=== PATIENT | male | born 1955 | race Caucasian/White ===

== ENCOUNTER 2018-06-21 12:19 | Emergency (ER) | payer BC ==
[~2018-06-21] VITALS: Ht 180.3 cm; Wt 104.3 kg
--- NOTE | 2018-06-21 15:09 | RAD ---
Examination: CT head and maxillofacial bones without contrast HISTORY: History of fall, loss of consciousness, head injury, facial injury COMPARISON: None available Technique: Axial CT images of the head was performed without contrast. Axial CT images of the maxillary facial bones were performed without contrast. Coronal and sagittal reformats are performed Exposure: One or more of the following individualized dose reduction techniques were utilized for this examination: 1. Automated exposure control 2. Adjustment of the mA and/or kV according to patient size 3. Use of iterative reconstruction technique FINDINGS: Mild bilateral periventricular white matter hypodensities likely chronic small vessel ischemic disease. No evidence of acute intracranial hemorrhage. No extra-axial fluid collections. No mass effect or midline shift. Ventricular size is appropriate. Basal cisterns are patent. No fractures identified.Miller-white differentiation is preserved.Globes and orbits are within normal limits. No acute fracture dislocation or other acute bony abnormality is identified. Mild mucosal thickening identified in the bilateral maxillary sinuses. Moderate mucosal thickening identified in the bilateral ethmoidal sinuses. The globes and orbits are intact in CT appearance. There is no retrobulbar hematoma. IMPRESSION: 1. No acute intracranial findings. 2. No acute fracture of the facial bones. Electronically signed by: Dio Victoria MD (06/21/2018 3:06 PM) [place] [id number]
--- NOTE | 2018-06-21 15:22 | PHYS DOC ---
Past Medical History Past Medical History: Hypertension Past Surgical History: Other Additional Past Surgical Histo: RIGHT SHOULDER Alcohol Use: Occasionally Drug Use: None Adult General Chief Complaint Chief Complaint: MECHANICAL FALL HPI HPI Patient is a 62-year-old male who presents with complaint of headache and a little bit of blurred vision after fall 2 days ago. Patient states that he had slipped on some ice, falling hitting his right forehead. Patient states that he had lost consciousness, was found on the ground and helped inside by a neighbor. Patient states that he decided not to come in at that time because he did not have to go to work. He does indicate that he had developed nausea and vomiting yesterday but has had none today. He rates his headache as being moderate. He states that he has been getting a little bit dizzy and has a little bit of blurred vision out of his right eye though he does indicate that he has to wear nonprescription corrective lenses. He denies any injury to the eye. Review of Systems Review of Systems Constitutional: Denies fever or chills [] Eyes: Complains of mild blurred vision in right eye [] Respiratory: Denies cough or shortness of breath [] Cardiovascular: No additional information not addressed in HPI [] GI: Denies abdominal pain. Complains of nausea and vomiting without diarrhea [] Musculoskeletal: Denies back pain or joint pain [] Integument: Denies rash or skin lesions [] Neurologic: [place] of headache and dizziness without focal weakness or sensory changes [] All other systems were reviewed and found to be within normal limits, except as documented in this note. Allergies Allergies Allergies Coded Allergies Type Severity Reaction Last Updated Verified No Known Drug Allergies 06/21/18 No Physical Exam Physical Exam Constitutional: Well developed, well nourished, no acute distress, non-toxic appearance. [] HENT: Normocephalic, small abrasions are noted just above right eyebrow and overlying right maxillary ridge, bilateral external ears normal, oropharynx moist, no oral exudates, nose normal. [] Eyes: PERRLA, EOMI, conjunctiva normal, no discharge. [] Neck: Normal range of motion, no tenderness, supple, no stridor. [] Cardiovascular: Regular rate and rhythm[] Lungs & Thorax: Bilateral breath sounds clear to auscultation [] Abdomen: Bowel sounds normal, soft, no tenderness. [] Skin: Warm, dry, no erythema, no rash. [] Extremities: No tenderness, no cyanosis, no clubbing, ROM intact, no edema. [] Neurologic: Alert and oriented X 3, normal motor function, normal sensory function, no focal deficits noted. [] Current Patient Data Vital Signs Vital Signs Date Time Temp Pulse Resp B/P (MAP) Pulse Ox O2 Delivery O2 Flow Rate FiO2 06/21/18 12:58 98.1 72 16 138/89 (105) 96 Room Air 98.1 EKG EKG [] Radiology/Procedures Radiology/Procedures [] Impressions: PROCEDURE: CT HEAD AND MAXILLOFACIAL WO Examination: CT head and maxillofacial bones without contrast HISTORY: History of fall, loss of consciousness, head injury, facial injury COMPARISON: None available Technique: Axial CT images of the head was performed without contrast. Axial CT images of the maxillary facial bones were performed without contrast. Coronal and sagittal reformats are performed Exposure: One or more of the following individualized dose reduction techniques were utilized for this examination: 1. Automated exposure control 2. Adjustment of the mA and/or kV according to patient size 3. Use of iterative reconstruction technique FINDINGS: Mild bilateral periventricular white matter hypodensities likely chronic small vessel ischemic disease. No evidence of acute intracranial hemorrhage. No extra-axial fluid collections. No mass effect or midline shift. Ventricular size is appropriate. Basal cisterns are patent. No fractures identified.Miller-white differentiation is preserved.Globes and orbits are within normal limits. No acute fracture dislocation or other acute bony abnormality is identified. Mild mucosal thickening identified in the bilateral maxillary sinuses. Moderate mucosal thickening identified in the bilateral ethmoidal sinuses. The globes and orbits are intact in CT appearance. There is no retrobulbar hematoma. IMPRESSION: 1. No acute intracranial findings. 2. No acute fracture of the facial bones. Electronically signed by: Dio Victoria MD (06/21/2018 3:06 PM) [place] [id number] DICTATED and SIGNED BY: DIO VICTORIA MD Course & Med Decision Making Course & Med Decision Making Pertinent Labs and Imaging studies reviewed. (See chart for details) CT imaging of the head and maxillofacial were reviewed and demonstrate no acute abnormalities. Visual acuity performed by nursing staff demonstrates approximately 20/200 in both eyes uncorrected and 20/70 in both eyes corrected with nonprescription lens. Findings of imaging have been reviewed with patient and patient does indicate that he has follow-up appointment with his primary care provider tomorrow. We'll provide work excuse for tonight and recommend rest and follow-up with optometry/ophthalmology for additional ocular testing. Dragon Disclaimer Dragon Disclaimer This electronic medical record was generated, in whole or in part, using a voice recognition dictation system. Departure Departure Impression: Primary Impression: Closed head injury with loss of consciousness of unknown duration Disposition: 01 HOME, SELF-CARE Condition: STABLE Referrals: HI SEGURA MD (PCP) Patient Instructions: Head Injury, Adult Additional Instructions: Follow-up with Dr. Segura tomorrow and schedule appointment with optometry or ophthalmology for additional ocular testing. ISAMAR BAPTISTE Jr. DO Jun 21, 2018 15:22
[2018-06-21 16:53] VITALS: BP 175/100
== END 2018-06-21 16:55 | disposition home or self-care (01) ==
LOC: ER 12:19
DX: S06.899A Other specified intracranial injury with loss of consciousness of unspecified duration, initial encounter (principal); R11.2 Nausea with vomiting, unspecified; I10 Essential (primary) hypertension; W00.0XXA Fall on same level due to ice and snow, initial encounter; Y93.89 Activity, other specified; Y92.89 Other specified places as the place of occurrence of the external cause; Y99.8 Other external cause status
CPT/HCPCS: 70450; 70486; 99284-25

== ENCOUNTER → 2021-05-18 | Outpatient (CLI) | payer BC ==
--- NOTE | 2021-05-18 17:15 | CARD ---
MR#: [id number] Date of Study: 05/18/2021 Ordering Physician: ERIN IRVIN, Referring Physician: ERIN IRVIN Tech: Karina Field [facility] APPROVED REPORT EXAM: Two-dimensional and M-mode echocardiogram with Doppler and color Doppler. Other Information Quality : AverageHR: 74bpm Rhythm : NSR INDICATION Chest Pain RISK FACTORS Hypertension 2D DIMENSIONS Left Atrium(2D)4.7 (1.6-4.0cm)IVSd1.3 (0.7-1.1cm) LVDd4.6 (3.9-5.9cm)LVOT Diameter2.3 (1.8-2.4cm) PWd1.2 (0.7-1.1cm)IVSs1.4 (0.8-1.2cm) LVDs3.5 (2.5-4.0cm)FS (%) 24.1 % PWs1.5 (0.8-1.2cm)SV47.5 ml Aortic Valve AoV Peak Gonzalo.103.9cm/sAoV VTI18.0cm AO Peak GR.4.3mmHgLVOT Peak Gonzalo.71.4cm/s LVOT VTI 14.85cmAO Mean GR.3mmHg MARLON (VMAX)2.96qy3PQF (VTI)3.48cm2 Mitral Valve MV E Ulvtwtub17.0cm/sMV DECEL [id number] MV A Qcqlatsp66.6cm/sMV UHM99fw E/A Ratio0.8MVA (PHT)3.60cm2 Pulmonary Valve PV Peak Ffvctkdz53.7cm/sPV Peak Grad.3mmHg LEFT VENTRICLE The left ventricle is normal size. There is mild concentric left ventricular hypertrophy. The left ve ntricular systolic function is normal and the ejection fraction is within normal range. LV ejection f raction of 55 to 60%. There is normal LV segmental wall motion. Transmitral Doppler flow pattern is G rade I-abnormal relaxation pattern. RIGHT VENTRICLE The right ventricle is normal size. There is normal right ventricular wall thickness. The right ventr icular systolic function is normal. ATRIA The left atrium size is normal. The right atrium size is normal. The interatrial septum is intact wit h no evidence for an atrial septal defect or patent foramen ovale as noted on 2-D or Doppler imaging. AORTIC VALVE The aortic valve is normal in structure and function. Doppler and Color Flow revealed no significant aortic regurgitation. There is no significant aortic valvular stenosis. MITRAL VALVE The mitral valve is normal in structure and function. There is no evidence of mitral valve prolapse. There is no mitral valve stenosis. Doppler and Color-flow revealed trace mitral regurgitation. TRICUSPID VALVE The tricuspid valve is normal in structure and function. Doppler and Color Flow revealed no tricuspid valve regurgitation noted. There is no tricuspid valve stenosis. PULMONIC VALVE The pulmonary valve is normal in structure and function. Doppler and Color Flow revealed no pulmonic valvular regurgitation. GREAT VESSELS The aortic root is normal in size. The ascending aorta is normal in size. The IVC is normal in size a nd collapses >50% with inspiration. PERICARDIAL EFFUSION There is no evidence of significant pericardial effusion. Critical Notification Critical Value: No <Conclusion> The left ventricle is normal size. The left ventricular systolic function is normal and the ejection fraction is within normal range. LV ejection fraction of 55 to 60%. There is mild concentric left ventricular hypertrophy. Doppler and Color Flow revealed no significant aortic regurgitation. There is no significant aortic valvular stenosis. Doppler and Color-flow revealed trace mitral regurgitation. Doppler and Color Flow revealed no tricuspid valve regurgitation noted. Signed by : Sandeep Calle MD Electronically Approved : 05/18/2021 17:14:50
--- NOTE | 2021-05-18 17:42 | RAD ---
MR#: [id number] Date of Study: 05/18/2021 Ordering Physician: ERIN IRVIN, Referring Physician: RACHELLE GARCIA Tech: RT Nena Howard) (N) APPROVED REPORT Test Type: Exercise Stress Nurse/Tech: Alma Ponce RN Test Indications: Chest pain, dyspnea Cardiac History: Hypertension Medications: See Electronic Medical Record Medical History: See Electronic Medical Record Resting ECG: SR Resting Heart Rate: 74 bpm Resting Blood Pressure: 142/92mmHg Pretest Chest Pain: No chest pain Nurse/Tech Notes S1,S2 and lungs diminished in the upper lobes. Patient stated he is short of breath every day, COVID recovered. Consent: The procedure was explained to the patient in lay terms. Informed consent was witnessed. Alan eout was entered into Dr. TATTOFF. History and Stress Test performed by RT All (Skyla) (N) Stress Symptoms Dyspnea,Fatigue POST EXERCISE Reason for Termination: Reached target heart rate, Fatigue Target HR: Yes Max HR: 139 bpm 88% of Maximum Predicted HR: 157 bpm Exercise duration: 4:54 min:sec, 2 Stage Exercise capacity: 7.0METs Max Blood Pressure: 172/91mmHg Blood Pressure response to exercise: Normal blood pressure response during stress. Heart Rate response to exercise: WNL Chest Pain: No. Arrhythmia: No. ST Change: No. INTERPRETATION Stress EKG Conclusion: The resting EKG showed a sinus rhythm with mild nonspecific T wave changes. The stress EKG showed no significant changes from baseline. No EKG evidence of stress-induced ischemia. Imaging Protocol IMAGE PROTOCOL: Rest Tc-99m/stress Tc-99m 1 day Rest: Stress: Viability: Radiopharm.Tc99m DviattpqpNo62i Sestamibi Ddff9vJd 30.5mCi Duration 15min. 15min. Img Date 05/18/2021 05/18/2021 Inj-Img Fpll77etx. 60min. Rest Admin Site:IV - Left HandAdministrator:RT Nena Howard)(N) Stress Admin Site: IV - Left HandAdministrator: Emely Gupta, RT (R)(N) STRESS DATA End Diast. Vol.84.0mlAv. Heart Rate87.0bpm End Syst. Vol.26.0mlCO Index BSA0.0L/min Myocardial Ckdu740.0gEject. Gzdzlzmz05.0% Stress Rates Pk. Fill Rate3.18EDV/secLVtime Pk. Fill 140.52msec Pk. Empty Rate4.88ESV/secLVtime Pk. Wkomv547.95msec /3 Pk. Fill1.83EDV/sec Stress Scores Regional WT0.00Summed WT1.00 Regional WM0.00Summed WM2.00 LV Perfusion The stress scans showed no significant defects. The rest scans showed no significant defects. Nuclear imaging shows no reversible ischemia or infarct. Wall Motion LV systolic function is normal with an ejection fraction of 69%. LV Perf. Quant 17 Seg. SSS0.00 17 Seg. SRS4.00 17 Seg. SDS0.00 Stress Defect Extent (% LAD)0.00Rest Defect Extent (% LAD)6.30Rev. Defect Extent (% LAD)0.00 Stress Defect Extent (% LCX) 0.00Rest Defect Extent (% LCX)0.00Rev. Defect Extent (% LCX)0.00 Stress Defect Extent (% RCA)0.00Rest Defect Extent (% RCA)0.00Rev. Defect Extent (% RCA)0.00 Stress Defect Extent (% BOYD)0.00Rest Defect Extent (% BOYD)4.60Rev. Defect Extent (% BOYD)0.00 Conclusion 1. Fair exercise tolerance with the patient walking for 4 minutes and 54 seconds on a Neto protocol. 2. No chest pain with exertion. 3. No EKG evidence of stress-induced ischemia. 4. Nuclear imaging shows no reversible ischemia or infarct. 5. Intact LV systolic function with an ejection fraction of 69%. 6. Moderately low risk treadmill nuclear stress test. Signed by : Sandeep Calle MD Electronically Approved : 05/18/2021 17:42:23
== END ==
LOC: ECHO 14:30
PROVIDERS: ATTEND Internal Medicine Cardiovascular Disease
DX: I51.7 Cardiomegaly (principal); R07.9 Chest pain, unspecified; R06.00 Dyspnea, unspecified
CPT/HCPCS: 78452; 93017; 93306; A9500; C8929